=== PATIENT | female | born 1960 | race African-American/Black ===

== ENCOUNTER 2023-06-12 06:07 | Day surgery (SDC) | payer OTHER ==
[2023-06-04 10:47] VITALS: BMI 33.9
[2023-06-12] MEDS ORDERED: BUPIVACAINE HCL/PF 0.25% (2.5MG/ML) 10 ML VIAL ONE (07:17)
[2023-06-12] MEDS ORDERED: EPINEPHrine 1:1,000 1,000 MCG/ML ML ONE (07:17)
[2023-06-12] MEDS ORDERED: LIDOCAINE HCL/PF 2% SDV 5ML VIAL ONE (07:24)
[2023-06-12] MEDS ORDERED: PROPOFOL 40 ML ONE (07:25)
[2023-06-12] MEDS ORDERED: MIDAZOLAM HCL 2 MG/2 ML SINGLE DOSE VIAL ONE (07:25)
[2023-06-12] MEDS ORDERED: ceFAZolin SODIUM 1 GM VIAL ONE (07:40)
[2023-06-12] MEDS ORDERED: ONDANSETRON 4 MG/2 ML VIAL ONE (07:52)
[2023-06-12] MEDS ORDERED: DEXAMETHASONE SOD PHOSPHATE 4 MG/1 ML VIAL ONE (07:52)
[2023-06-12] MEDS ORDERED: ACETAMINOPHEN INJECTION 100 ML IVPB ONE (08:42)
[2023-06-12] MEDS ORDERED: IBUPROFEN 800 MG/8 ML IJ IVPB PRN (08:42)
[2023-06-12] MEDS ORDERED: IBUPROFEN 800 MG/8 ML IJ IVPB ONE (08:42)
[2023-06-12] MEDS ORDERED: ACETAMINOPHEN 1000 MG/100 ML BAG IVPB ONE (08:42)
[2023-06-12] MEDS ORDERED: oxyCODONE HCL 5 MG TABLET PO PRN (08:43)
[2023-06-12] MEDS ORDERED: ONDANSETRON 4 MG/2 ML VIAL IVPUSH PRN (08:43)
[2023-06-12] MEDS ORDERED: LACTATED RINGERS SOLUTION 1,000 ML IV SCH (08:45)
[2023-06-12] MEDS ORDERED: FENTANYL CITRATE/PF 50 MCG/ML VIAL ONE (09:32)
[2023-06-12 09:57] VITALS: RESP 18
[2023-06-12 10:41] VITALS: PULSE 78; TEMP 96.9
[2023-06-12 10:43] VITALS: BP 132/64
[2023-06-12] MEDS ORDERED: oxyCODONE HCL 5 MG TABLET ONE (10:49)
[2023-06-12 12:40] LABS: HIV INTERPRETATION NEGATIVE (NEGATIVE)
== END 2023-06-12 11:20 | disposition home or self-care (01) ==
LOC: FASU 06:07
PROVIDERS: ATTEND Orthopaedic Surgery Sports Medicine
PROC: 0SBC4ZZ Excision of Right Knee Joint, Percutaneous Endoscopic Approach (ICD-10-PCS; principal; 2023-06-12 07:52)
DX: S83.241A Other tear of medial meniscus, current injury, right knee, initial encounter (principal); M94.261 Chondromalacia, right knee; M65.861 Other synovitis and tenosynovitis, right lower leg; X58.XXXA Exposure to other specified factors, initial encounter; Y93.9 Activity, unspecified; Y92.9 Unspecified place or not applicable
CPT/HCPCS: 36415; 84460; 86803; 87340; 87389; 94760